=== PATIENT | female | born 1960 | race Caucasian/White ===

== ENCOUNTER 2024-08-29 13:28 | Emergency (ER) | payer BC, SELFPAY ==
[2024-08-29 13:28] VITALS: BMI 42.5
[2024-08-29 14:09] VITALS: BP 151/75; BP 166/80; PULSE 70; RESP 20; TEMP 37; O2SAT 96
--- NOTE | 2024-08-29 14:19 | XR_ITS ---
Examination: PA lateral chest 2 views TECHNIQUE: Upright PA lateral chest 2 views Exam date and time: August 29, 2024 1443 hours INDICATIONS: Chest pain shortness of breath one week. FINDINGS: Normal heart size No pneumonia or pulmonary edema The osseous structures are intact IMPRESSION: No active disease
--- NOTE | 2024-08-29 14:42 | EDNOTE_ITS ---
ED SOB =RME/HPI General Chief Complaint: Shortness of Breath/Dyspnea Stated Complaint: SHORTNESS OF BREATH Time Seen by Provider: 08/29/24 13:35 Source: patient Arrival date/time: 08/29/24 13:28 This is a 64-year-old female who presents to the emergency department with complaints of nasal congestion, cough and shortness of breath for 3 to 4 days. She does have a history of asthma has been using her inhalers with mild relief of symptoms. Patient denies any other associated symptoms or aggravating factors. No modifying factors, no radiation, no migration. Social history is negative for tobacco, EtOH, or drug use. Denies fever, chills rigors chest pain. Mode of arrival: ambulatory Related Data Previous Rx's ?Medication ?Instructions ?Recorded Hydrocodone/Acetaminophen * (NORCO 1 tab PO Q6H PRN PA IN #40 tabs 09/08/14 10/325 *) oseltamivir 75 mg capsule (Tamiflu) 75 mg PO BID 5 day s #10 caps 08/29/24 Allergies Allergy/AdvReac Type Severity Reaction Status Date / Time NKA* Allergy Uncoded 08/29/24 13:33 Review of Systems Review of Systems Systems Reviewed: All systems reviewed, normal except as documented Narrative Review of Systems: Gen: No fever, no chills, no weight loss EYES: No discharge, no visual changes, no pain HEENT: No ear pain, positive congestion, no sore throat PULM: Positive shortness of breath, positive cough, no congestion CV: No chest pain, no dyspnea on exertion, no palpitations GI: No nausea, no vomiting, no diarrhea, no pain, no constipation : No frequency, no urgency,? no dysuria Musc/skel: No joint pain, no back pain Skin: No rash? Psyc: No hallucinations, no depression Heme/Lymph: No easy bleeding or bruising tendencies Neuro: No weakness, no headache ED Exam Narrative Physical exam: General: Sittiing in Exam table in no acute distress, answering questions appropriately HENT: normocephalic, atraumatic, EOMI, PERRLA, moist mucous membranes Chest: chest wall is nontender Cardiac: regular rate and rhythm, normal S1 and S2, no murmurs, rubs, or gallops, capillary refill ?2 seconds Pulmonary: clear to auscultation bilaterally, + mild wheezing, no crackles, or rhonchi Abdominal: active bowel sounds, soft, nontender, nondistended Neuro: A&OX3, CN II-XII intact, sensation grossly intact bilaterally in UE and LE. Skin: no rashes, no ecchymosis Ext: no lower extremity edema Course Quality Measures none Orders Category Date Time Status XR chest 2V Stat Exams 08/29/24 14:19 Completed Albuterol/Ipratr Rt Yesica [Duoneb Rt Yesica] Med 08/29/24 14:19 Discontinued 3 ml INH X1 ONE Budesonide Rt [Pulmicort Rt Yesica] Med 08/29/24 14:19 Discontinued 0.5 mg INH X1 ONE Vital Signs Vital signs: Vital Signs Temperature 98.6 F 08/29/24 14:09 Pulse Rate 70 08/29/24 14:09 Respiratory Rate 20 08/29/24 14:09 Blood Pressure 166/80 H 08/29/24 14:09 Pulse Oximetry (%) 96 08/29/24 14:09 Oxygen Delivery Method Room Air 08/29/24 14:09 Shortness of Breath / Dyspnea MDM Narrative MDM Narrative:: This is a 64-year-old female presents to the emergency department complaints of flulike symptoms, patient has some mild wheezing chest x-ray completed negative for pneumonia. A albuterol DuoNeb treatment was given to patient improving her symptoms. Flu swab was completed patient was flu a positive. Patient has no hypoxemia vital signs stable. Positive rapid influenza test in ER. not chronically ill or immunosuppressed. History and exam I have lower suspicion for any emergent cardiopulmonary, Otolaryngeal and immunosupressing related infectious causes. Given patient symptomatic, start Tamilflue 75 mg p.o. twice daily 5 days and conservative self-care and techniques to reduce spread for this suspected transient and self-resolving illness. Advised will discharge with strict return precautions. Follow up with primary care provider within 24 hours. Patient data External records reviewed:: [facility] previous records Clinical information provided by:: patient Social determinants that could affect healthcare access:: none Patient has the following chronic illnesses:: no How is presenting disease/condition affected by chronic disease/condition?: uneffected by Evaluation data The following diagnostics were reviewed and interpreted by me:: radiology exam(s) Lab and/or radiology exams considered but not ordered:: no Interpretation Summary: Examination: PA lateral chest 2 views TECHNIQUE: Upright PA lateral chest 2 views Exam date and time: August 29, 2024 1443 hours INDICATIONS: Chest pain shortness of breath one week. FINDINGS: Normal heart size No pneumonia or pulmonary edema The osseous structures are intact IMPRESSION: No active disease Medications / Prescriptions Medications or Prescriptions considered but not ordered:: no Medication administrations:: Medication Administration History Discontinued Medications Albuterol/Ipratropium (Albuterol/Ipratropium (Duoneb) Rt Yesica 3 Ml Nebu) 3 ml INH X1 ONE Stop: 08/29/24 14:20 Last Admin: 08/29/24 14:50 Dose: 3 ml Documented By: PAVAN Budesonide (Budesonide Rt 0.5 Mg/2 Ml Nebu) 0.5 mg INH X1 ONE Stop: 08/29/24 14:20 Last Admin: 08/29/24 16:21 Dose: 0.5 mg Documented By: PAVAN All medications administered and effective Consultations Consultation(s) initiated? (list below): No Diagnosis Shortness of Breath Differential Diagnosis: acute exacerbation of chronic obstructive airways disease, community acquired pneumonia and asthma with exacerbation Most likely diagnosis given after review of the tests above:: Influenza positive Admission Indicated Admission indicated?: not indicated Admission Request Was there a request for admission?: No Disposition Plan Disposition Plan: Discharge Discharge Attestation Discharge Attestation: The patient and all family members were given an opportunity to ask questions and understood the discharge instructions. Discharge instructions specifically effects, indications for sooner follow up or return to the emergency department, and the expected course of current diagnosis. Patient condition: Stable Discharge Plan Plan Patient Disposition: HOME (Self Care) Patient condition on transfer: Stable Prescriptions/Referrals Prescriptions/Med Rec: New oseltamivir [Tamiflu] 75 mg capsule 75 mg PO BID 5 Days Qty: 10 0RF No Action Hydrocodone/Acetaminophen * (NORCO 10/325 *) 1 TAB tablet 1 tab PO Q6H PRN (Reason: PAIN) Qty: 40 0RF Referrals: Jitendra Nicholson MD [Primary Care Provider] - In 1 week Problem List Clinical Impression: Influenza Patient/Caregiver Discharge Instructions Discharge Activity: activity as tolerated Education Materials: ED Influenza (Adult) Additional Instructions: Your rapid influenza test was positive. Start Tamiflu, antipyretics to pharmacy. 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 Please follow-up with your clinic 3-day follow-up. If you develop any type of respiratory distress or change in condition please go immediately to nearest emergency department Print Language: Faroese Stand Alone Forms: Precious Award Info., Patient Portal Info Letter PA/[employer]OZEN FOOD DEPARTMENT MANAGER Supervising Physician PA/FROZEN FOOD DEPARTMENT MANAGER Supervising Physician: Dr Joyner
[2024-08-29] MEDS: ALBUTEROL/IPRATROPIUM (Duoneb) RT SOL 3 ML NEBU INH (14:50)
[2024-08-29 14:52] VITALS: PULSE 95; RESP 22; O2SAT 100
[2024-08-29] MEDS: BUDESONIDE RT 0.5 MG/2 ML NEBU INH (16:21)
[2024-08-29 16:24] VITALS: PULSE 88; RESP 20; O2SAT 100
== END 2024-08-29 17:02 | disposition home or self-care (01) ==
PROVIDERS: Emergency Provider Emergency Medicine; PCP Internal Medicine
DX: J11.1 Influenza due to unidentified influenza virus with other respiratory manifestations (principal); J45.909 Unspecified asthma, uncomplicated
CPT/HCPCS: 71046; 87400; 87811; 94640; 99283; A9270

== ENCOUNTER → 2024-10-02 | Outpatient (CLI) | payer BC, SELFPAY ==
--- NOTE | 2024-10-02 16:14 | XR_ITS ---
Examination: Venous duplex lower extremity sonogram, bilateral. Date and time of exam: October 02, 2024 1619 hours INDICATIONS: Bilateral leg cramping and edema 5 days Technique: Multiple sonographic images of the deep venous system have been obtained. B-mode/2-D grayscale imaging of vascular structures and Doppler spectral analysis (waveforms) and color performed Both legs are examined. Findings: Deep venous systems do not demonstrate abnormal echogenicity. All visualized deep veins exhibit compressibility. All visualized deep veins exhibit augmentation. Impression: Negative for deep vein thrombosis
== END | disposition home or self-care (01) ==
PROVIDERS: PCP Internal Medicine; Referring Provider Internal Medicine; Visit Provider Internal Medicine
DX: R22.43 Localized swelling, mass and lump, lower limb, bilateral (principal)
CPT/HCPCS: 93970

== ENCOUNTER → 2024-10-10 | Outpatient (CLI) | payer BC, SELFPAY ==
[2024-10-10 13:04] LABS: Collection Type, Urine Clean Catch
[2024-10-10 13:19] LABS: Basophils % (Auto) 0 % (0-2.5); Eosinophils # (Auto) 0.3 Thou/mm3 (0.0-0.5); Eosinophils % (Auto) 4 % (0-10); Hematocrit 41.8 % (36.0-46.0); Hemoglobin 13.9 g/dL (12.0-16.0); Immature Granulocytes % (Auto) 1 % (0-0); Immature Granulocytes Auto 0.05 Thou/mm3 (0.00-0.00); Lymphocytes # (Auto) 1.4 Thou/mm3 (1.0-4.8); Lymphocytes % (Auto) 19 % (10-50); Mean Corpuscular HGB Conc 33.3 g/dl (31.0-37.0); Mean Corpuscular Hemoglobin 28.4 pg (25.0-35.0); Mean Corpuscular Volume 85 fL (80-100); Monocytes # (Auto) 0.4 Thou/mm3 (0.0-0.8); Monocytes % (Auto) 6 % (0-12); Neutrophils # (Auto) 5.3 Thou/mm3 (1.8-7.7); Neutrophils % (Auto) 71 % (37-80); Nucleated Red Blood Cell % 0 /100 WBC (0); Platelet Count 208 Thou/mm3 (140-440); RDW Standard Deviation 42.4 fL (36.4-46.3); White Blood Count 7.4 Thou/mm3 (3.6-11.0)
[2024-10-10 13:22] LABS: Bilirubin,Urine Negative (Negative); Blood,Urine Negative (Negative); Clarity,Urine Clear (Clear/Hazy); Color,Urine Lt-Yellow (Lt Yel-Yel); Glucose, Urine Negative (Negative); Hyaline Casts,Urine < 1 /hpf (0-1); Ketones,Urine Negative (Negative); Leukocyte Esterase,Urine Negative (Negative); Nitrite,Urine Negative (Negative); PH,Urine 5.5 (5.0-7.0); Protein,Urine Negative (Neg - Trace); RBC,Urine < 1 /hpf (0-3); Specific Gravity,Urine 1.012 (1.001-1.035); Squamous Epithelial Cell,Urine < 1 /hpf (0-5); Urobilinogen,Urine Negative mg/dL (0.0-1.0); WBC,Urine 1 /hpf (0-5)
[2024-10-10 13:23] LABS: Glucose Estimated Average 108 mg/dL (80-131); Hemoglobin A1C 5.4 % Hgb (4.8-6.0)
[2024-10-10 13:25] LABS: Alanine Aminotransferase 15 U/L (10-49); Albumin/Globulin Ratio 1.3 (1.2-2.2); Alkaline Phosphatase 87 U/L (46-116); Anion Gap 6 (7-16); Aspartate Amino Transferase 21 U/L (0-34); BUN/Creatinine Ratio 13 Ratio (12-20); Bilirubin,Total 0.6 mg/dL (0.3-1.2); Blood Urea Nitrogen 13 mg/dL (9-23); Calcium 9.2 mg/dL (8.3-10.6); Calcium (Corrected) 9.2 mg/dL (8.5-10.1); Carbon Dioxide 28.3 mMol/L (20.0-31.0); Cardiac Risk Estimate 3.3 RATIO (3.7-5.6); Chloride 106 mMol/L (98-107); Cholesterol 174 mg/dL (132-200); Glucose 113 mg/dL (74-106); HDL Cholesterol 52 mg/dL (40-60); LDL Cholesterol,Calculated 115 mg/dL (0-130); Osmolality,Calculated 280 (275-295); Potassium 4.4 mMol/L (3.4-5.1); Sodium 140 mMol/L (136-145); Thyroid Stimulating Hormone 1.49 uIU/mL (0.55-4.78); Triglycerides 33 mg/dL (30-150); Uric Acid 4.9 mg/dL (3.1-7.8); eGFR > 60 See Note
[2024-10-10 14:05] LABS: Vitamin D 25 Hydroxy Total 29.1 ng/mL (7.3-40.2)
[2024-10-10 16:12] LABS: Vitamin B12 426 pg/mL (211-911)
== END | disposition home or self-care (01) ==
LOC: COPL 12:12
PROVIDERS: PCP Internal Medicine; Referring Provider Internal Medicine; Visit Provider Internal Medicine
DX: Z00.00 Encounter for general adult medical examination without abnormal findings (principal)
CPT/HCPCS: 36415; 80053; 80061; 81001; 82306; 82607; 83036; 84443; 84550; 85025

== ENCOUNTER → 2024-10-27 | Outpatient (CLI) | payer BC, SELFPAY ==
--- NOTE | 2024-10-27 13:15 | XR_ITS ---
Examination: Screening digital mammography, bilateral Computer aided detection 3-D breast Tomosynthesis, bilateral Date and time of exam: October 28, 1999 2511 1323 hrs. Compared to mammograms dating to August 30, 2016 Indication: Screening Technique: Nonmagnified MLO, CC views of the breasts to been obtained, reconstructed from 3-D Tomosynthesis images. R2 computer aided detection program utilized for evaluation of suspicious masses and/or abnormal calcifications. 3-D Tomosynthesis images obtained. Findings: Scattered areas of fibroglandular density. Benign calcifications. No interval suspicious masses Impression: BI-RADS category II: Benign Findings. Recommend 1 year follow-up mammogram.
--- NOTE | 2024-10-27 13:30 | XR_ITS ---
Examination: Bone densitometry Date and time of exam:October 27, 2024 1400 hours INDICATIONS: Postmenopausal, steroid inhaler for asthma Technique: Lumbar spine and hip total bone mineralization values of an calculated. Peak reference and age match control results have been displayed. Findings: Lumbar spine total bone mineralization is0.977 gm/cm2. This is 0.7 standard deviations below peak reference. This is 1.1 standard deviations above age-matched controls. Hip total bone mineralization is 0.734 gm/cm2 This is 1.7 standard deviations below peak reference. This is 0.5 standard deviations below age-matched controls Impression: There is normal mineralization based on lumbar spine measurements. There is osteopenia based on hip measurements Lumbar mineralization is decreased 1.4% compared with August 30, 2018 Hip mineralization is decreased 2.2% compared with August 30, 2018
== END | disposition home or self-care (01) ==
PROVIDERS: Referring Provider Internal Medicine; Visit Provider Internal Medicine
DX: Z12.31 Encounter for screening mammogram for malignant neoplasm of breast (principal); R92.323 Mammographic fibroglandular density, bilateral breasts; R92.1 Mammographic calcification found on diagnostic imaging of breast; M85.89 Other specified disorders of bone density and structure, multiple sites
CPT/HCPCS: 77063; 77067; 77080

== ENCOUNTER → 2024-12-05 | Outpatient (CLI) | payer BC, SELFPAY ==
[2024-12-06 10:11] LABS: BVAG Candida Negative (Negative); Bacterial Vaginosis Markers Positive (Negative); Candida glabrata Negative (Negative); Candida krusei PCR Negative (Negative); Trichomonas Negative (Negative)
== END | disposition home or self-care (01) ==
PROVIDERS: Referring Provider Physician Assistant Medical; Visit Provider Physician Assistant Medical
DX: A59.01 Trichomonal vulvovaginitis (principal); B37.89 Other sites of candidiasis; N76.0 Acute vaginitis
CPT/HCPCS: 81514